=== PATIENT | male | born 1980 | race Caucasian/White ===

== ENCOUNTER 2022-12-27 08:34 | Day surgery (SDC) | payer OTHER, SELFPAY ==
[2022-12-27] MEDS: SODIUM CHLORIDE 0.9 % (FLUSH) 10 ML SYRINGE IVF (09:14)
[2022-12-27] MEDS: LACTATED RINGERS 1000 ML 1,000 ML 100 ML IV (09:14)
[2022-12-27 09:15] VITALS: BP 113/80; PULSE 62; RESP 16; TEMP 36.2; O2SAT 95
[2022-12-27] MEDS: MIDAZOLAM HCL 1 MG/ML inj IVP (09:20)
[2022-12-27] MEDS: fentaNYL 100 MCG/2 ML inj IVP (09:20)
[2022-12-27 09:22] VITALS: BMI 30.7
--- NOTE | 2022-12-27 09:35 | SUR.PREOP ---
TIME?OUT:?20 PT/RN/MDA?VERIFICATION?OF?SURGICAL?SITE,?PROCEDURE,?AND?CONSENT OBTAINED?PRIOR?TO?INVASIVE?PROCEDURE.
--- NOTE | 2022-12-27 09:39 | W.PM.NB ---
Nerve Block Nerve Block Time Seen by Provider: 09: Date Seen: 12/27/22 Type of block requested by surgeon for post-operative analgesia: axillary Side: left Time out performed: Yes Verification of patient name: Yes Verification of date of : Yes Site marking: site marked Name of person performing procedure: Jakob Continuous monitoring Was continuous monitoring of O2 sat, B/P, investigation division lieutenant, recorded every 15 minutes?: Yes Procedure Checklist: sterile prep, needles and gloves Ultrasound guided. Images saved: Yes Medications given in 5ml increments after negative aspiration: Ropivicaine %: 0.5 mL: 10 Needle gauge: 22 and Lidocaine %: 2 mL: 15 Needle gauge: 22 Patient tolerated procedure well: Yes Additional comments: Needle noted adjacent to nerve Block Charges Block Charge (with Pro Fee): Brachial Plexus Use of Ultrasound Machine for Block: Yes- US Guidance/pain block
--- NOTE | 2022-12-27 09:39 | W.ANESCHARGE ---
Anesthesia Charges Start Date/Time Anesthesia Start Date: 12/27/22 Anesthesia Start Time: 09:27 Stop Date/Time Anesthesia Stop Date: 12/27/22 Anesthesia Stop Time: 11:10
--- NOTE | 2022-12-27 10:51 | PM.ORPRC ---
Procedure Note Date of procedure: 12/27/22 Procedure: Preop diagnosis: Left wrist volar ganglion cyst Postop diagnosis: Left wrist volar ganglion cyst Procedure: Ganglion excision Anesthesia: Axillary block plus monitored anesthesia care Surgeon: Rhys Fuentes MD assistant customer service manager: CRISTELA Rizvi EBL: 10 mL Complications: None Specimens: None Drains: None Indications: The patient has a history of a left wrist painful volar mass, consistent with a ganglion cyst. Despite appropriate nonoperative management they continue to have symptoms. Operative intervention was recommended. The risks, benefits alternatives and expected outcomes were discussed in detail. These included but were not limited to: Infection, bleeding, injury to blood vessel or nerve, venous thromboembolism. All questions were answered to their satisfaction. An axillary block was placed by anesthesia. The patient was placed supine on the operating room table. IV sedation was administered. The hand was prepped and draped in usual sterile fashion. The limb was elevated. The forearm pneumatic tourniquet was inflated to 250 mm of mercury. A longitudinal incision was made over the flexor carpi radialis. Subcutaneous dissection was taken with the tenotomy scissors to the ganglion. It was bluntly dissected free from the subcutaneous fat and FCR tendon. It was densely adherent to the radial artery throughout. It was carefully dissected off of the radial artery and followed distally. The artery was carefully protected throughout the case. The ganglion was followed down to the wrist joint. It was excised at its exit from the joint. A cuff of normal joint capsule was excised with the 15 blade and the rongeur. The tourniquet was released. The hand was immediately pink and warm. A couple small areas of venous bleeding were cauterized. There was no arterial bleeding. The wound was irrigated with normal saline. It was closed with a 3-0 Vicryl and 3-0 Monocryl. A dry dressing and short-arm volar splint were applied. Sponge and needle counts were correct x 2. The patient tolerated the procedure well, there were no apparent complications. They were sent to same day surgery in satisfactory condition. Plan: Use of the hand as tolerates. Discontinue the intraoperative dressing on postoperative day 3 and may get the wound wet as tolerates. Follow up in the office in 1-2 weeks for a wound check.
--- NOTE | 2022-12-27 11:05 | SUR.OPER ---
Dr Fuentes confirmed no biopsy to be sent.
[2022-12-27 11:08] VITALS: BP 109/84; PULSE 68; RESP 16; TEMP 36.1; O2SAT 93
--- NOTE | 2022-12-27 11:09 | W.ANESCHARGE ---
Anesthesia Charges Start Date/Time Anesthesia Start Date: 12/27/22 Anesthesia Start Time: 09:27 Stop Date/Time Anesthesia Stop Date: 12/27/22 Anesthesia Stop Time: 11:10
[2022-12-27 11:15] VITALS: BP 115/85; PULSE 67; RESP 16; TEMP 36.1; O2SAT 95
[2022-12-27 11:30] VITALS: BP 118/84; PULSE 65; RESP 16; O2SAT 95
[2022-12-27 11:49] VITALS: BP 108/65; PULSE 50; RESP 16; O2SAT 94
== END 2022-12-27 12:06 | disposition home or self-care (01) ==
PROVIDERS: PCP Surgery; Visit Provider Orthopaedic Surgery
PROC: (CPT 25111; principal; 2022-12-27 09:15)
DX: M67.432 Ganglion, left wrist (principal); G89.18 Other acute postprocedural pain
CPT/HCPCS: 25111; 01810; 01830; 64415; 76942; A4580; J2250; J2704; J2795; J3010; J7120; L3670

== ENCOUNTER 2024-11-20 10:05 | Outpatient (CLI) | payer BC, SELFPAY ==
--- NOTE | 2024-11-20 10:15 | MR_ITS ---
EXAM: MRI of the RIGHT LOWER LEG, including TIBIA/FIBULA, without contrast CLINICAL INFORMATION: Male, 44 years old, with right calf pain. INDICATION: Evaluate for medial gastrocnemius injury. PRIOR SURGERY: None reported. PLAIN FILMS: None available. COMPARISONS: No prior MRIs available. TECHNICAL INFORMATION: Using a 1.5T MR scanner and a localizing surface coil: coronals: T1, STIR sagittals: T1, STIR axials: T1, STIR SEDATION: None. CONTRAST: None. FINDINGS: Bones: The right tibia and fibula are intact and unremarkable, without stress/occult fracture, bone marrow edema, periostitis or osseous mass. Musculotendinous structures: Poorly defined tearing at the distal myotendinous junction of the medial gastrocnemius measures approximately 3.0 x 0.8 x 4.3 cm, with moderate-marked edema/hemorrhage throughout the superficial and deep fascial planes extending to the mid calf (axial STIR series 8 images 1-19, coronal STIR series 4 images 16-28, and sagittal STIR series 6 image 22). The soleus, lateral gastrocnemius, and remainder of the muscular structures throughout the right calf is otherwise unremarkable. Soft tissues: Moderate-marked subcutaneous soft tissue edema/hemorrhage throughout the medial and posterior aspects of the right calf (axial STIR series 8 image 18). IMPRESSION: 1. Grade 2 strain of the medial gastrocnemius distal myotendinous junction with poorly defined tearing measuring 3.0 x 0.8 x 4.3 cm, with extensive edema/hemorrhage throughout the superficial and deep fascial planes extending to the mid calf. 2. Moderate-marked soft tissue edema/hemorrhage throughout the medial and posterior aspects of the mid-distal calf. 3. No fracture or osseous stress reaction. 4. No other myotendinous abnormality. BC Electronically signed on 11/25/2024 11:10:00 AM by Javier Sanno M.D.
== END 2024-11-20 10:06 | disposition home or self-care (01) ==
LOC: MRI 10:06
PROVIDERS: PCP Surgery; Visit Provider Physician Assistant
DX: M79.604 Pain in right leg (principal); S86.812A Strain of other muscle(s) and tendon(s) at lower leg level, left leg, initial encounter
CPT/HCPCS: 73718